=== PATIENT | female | born 1965 | race Caucasian/White ===

== ENCOUNTER 2021-11-11 19:27 | Emergency (ER) | payer MEDICAID ==
[~2021-11-11] VITALS: Ht 160 cm; Wt 55.3 kg
[2021-11-11 19:34] VITALS: BP_SYST 169
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
[2021-11-11] MEDS ORDERED: METF-518 PO (19:51)
--- NOTE | 2021-11-11 21:00 | NUR ---
Pt ambulates with strong steady gait, respirations even and unlabored. normal skin color for ethnicity.
[2021-11-11 21:32] LABS: HCG,QUAL RESULT NEGATIVE (NEGATIVE)
[2021-11-11] MEDS ORDERED: CYCL10TA24 PO (21:38)
[2021-11-11] MEDS ORDERED: ACET-2634 PO (21:38)
[2021-11-11] MEDS ORDERED: IBUP-1969 PO (21:38)
[2021-11-11 21:42] LABS: BILIRUBIN,URINE NEGATIVE (NEGATIVE); BLOOD, URINE 3+ (NEGATIVE); COLOR,URINE YELLOW (YELLOW); GLUCOSE,URINE 3+ (NEGATIVE); KETONES,URINE TRACE (NEGATIVE); LEUKOCYTE ESTERASE ,URINE NEGATIVE (NEGATIVE); NITRITE, URINE NEGATIVE (NEGATIVE); PROTEIN URINE NEGATIVE (NEGATIVE); UROBILINOGEN,URINE 0.2 (0.2-1.0)
[2021-11-11] MEDS ORDERED: KETOROLAC TROMETHAMINE 60 MG/2 ML VIAL IM ONE (21:45)
[2021-11-11] MEDS ORDERED: CYCLOBENZAPRINE HCL 10 MG TABLET (FLEXERIL) PO ONE (21:45)
[2021-11-11] MEDS ORDERED: ACETAMINOPHEN 500 MG TABLET PO ONE (21:45)
[2021-11-11 21:54] LABS: CLARITY/URINE HAZY (CLEAR)
[2021-11-11 22:00] VITALS: BP_SYST 126
--- NOTE | 2021-11-11 22:18 | NUR ---
Patient given written and verbal discharge instructions and verbalizes understanding. ER MD discussed with patient the results and treatment provided. Patient in stable condition. ID arm band removed. IV catheter removed intact and dressing applied, no active bleeding. Rx of flexeril, acetaminophen, and ibuprofen given. Patient educated on pain management and to follow up with PMD. Pain Scale 6/10, but toradol given. Opportunity for questions provided and answered. Medication side effect fact sheet provided.
[2021-11-11 22:26] LABS: BACTERIA,URINE FEW /HPF (None Seen)
[2021-11-11 22:27] LABS: MUCUS,URINE None Seen /LPF (None Seen)
== END 2021-11-11 21:00 | disposition home or self-care (01) ==
LOC: SED 19:27
DX: M54.50 Low back pain, unspecified (principal); M54.2 Cervicalgia; M54.6 Pain in thoracic spine; M25.512 Pain in left shoulder; M79.10 Myalgia, unspecified site; E11.9 Type 2 diabetes mellitus without complications; R03.0 Elevated blood-pressure reading, without diagnosis of hypertension; Z88.0 Allergy status to penicillin
CPT/HCPCS: 81000; 84703; 96372; 99283; J1885